=== PATIENT | male | born 1975 | race Caucasian/White ===

== ENCOUNTER 2019-05-09 08:33 | Day surgery (SDC) | payer BC ==
[2019-05-09] MEDS ORDERED: PROPOFOL 10 MG/ML VIAL IV ONE (08:34)
[2019-05-09] MEDS ORDERED: LIDOCAINE 2% MDV (20MG/ML) 20ML VIAL IV ONE (08:34)
--- NOTE | 2019-05-14 14:01 | Operative Note ---
OPERATION: COLONOSCOPY. PREOPERATIVE DIAGNOSIS: Change in bowel habits. POSTOPERATIVE DIAGNOSIS: Normal ileal colonoscopy. PROCEDURE: After informed consent was obtained from the patient, he was placed in the left lateral decubitus position in the endoscopy suite, sedated and monitored by the department of anesthesia. Digital rectal exam was unremarkable. A well-lubricated COM145 colonoscope was inserted into the rectum and advanced to the cecum. The cecum, cecal bulb, ileocecal valve, appendiceal orifice, terminal ileum, ascending colon, transverse colon, descending colon, sigmoid colon, and rectum were unremarkable. Preparation quality was excellent. The rectum was unremarkable in forward and J-turn views. The endoscope was straightened, the rectal ampulla deflated, and the endoscope was removed. RECOMMENDATIONS: I would suggest the patient use a fiber supplement such as Citrucel or Benefiber. He should undergo repeat exam in 10 years or sooner should some new symptoms or family history warrant. As always, thank you for allowing me to participate in the healthcare of your patients. [email or web address]
== END 2019-05-09 10:09 | disposition home or self-care (01) ==
LOC: HOP 08:33
PROVIDERS: ATTEND Internal Medicine Gastroenterology
DX: R19.4 Change in bowel habit (principal)